=== PATIENT | female | born 2000 | race Two or more races ===

== ENCOUNTER 2021-09-23 08:35 | Emergency (ER) | payer OTHER ==
[~2021-09-23] VITALS: Ht 165.1 cm; Wt 61.2 kg
[2021-09-23 09:06] VITALS: BP 130/87
[2021-09-23] MEDS ORDERED: SILVER SULFADIAZINE 1 % TOPICAL CREAM 50GM TOP ONE (09:30)
[2021-09-23] MEDS ORDERED: IBUPROFEN 600 MG TAB PO ONE (09:30)
[2021-09-23] MEDS ORDERED: NAPR500T31 PO (09:55)
[2021-09-23] MEDS ORDERED: CEPH500C PO (09:55)
== END 2021-09-23 10:13 | disposition home or self-care (01) ==
LOC: ER 08:35
DX: T23.201A Burn of second degree of right hand, unspecified site, initial encounter (principal); Z88.1 Allergy status to other antibiotic agents; X12.XXXA Contact with other hot fluids, initial encounter; Y93.89 Activity, other specified; Y92.89 Other specified places as the place of occurrence of the external cause; Y99.8 Other external cause status
CPT/HCPCS: 16020

== ENCOUNTER 2021-11-07 17:28 | Emergency (ER) | payer SELFPAY ==
[~2021-11-07] VITALS: Ht 167.6 cm; Wt 63.5 kg
[~2021-11-07 17:28] MED LIST: CEPH500C PO; NAPR500T31 PO
[2021-11-07 17:41] VITALS: BP 112/76
== END 2021-11-07 19:05 | disposition left against medical advice (07) ==
LOC: ER 17:28 → EDBD 17:28 → ER 17:41
DX: R55 Syncope and collapse (principal); Z53.21 Procedure and treatment not carried out due to patient leaving prior to being seen by health care provider